=== PATIENT | male | born 1995 | race Caucasian/White ===

== ENCOUNTER → 2019-10-15 20:05 | Outpatient (CLI) | payer OTHER, SELFPAY | LOC: LAB 20:05 | PROVIDERS: PCP Physician Assistant; Visit Provider Physician Assistant | DX: J02.9 Acute pharyngitis, unspecified (principal) | CPT/HCPCS: 87070; 87147 ==

== ENCOUNTER 2020-08-07 19:11 | Emergency (ER) | payer OTHER, SELFPAY ==
[2020-08-07 19:22] VITALS: BP 142/78; PULSE 91; RESP 18; TEMP 36.8; O2SAT 97; BMI 52.7
[2020-08-07] MEDS: AMOXICILLIN 250 MG CAPSULE 500 MG PO (20:00)
--- NOTE | 2020-08-07 20:00 | ED_ITS ---
HPI - URI/Sore Throat <ROZ RaoP - Last Filed: 08/07/20 20:08> General Chief Complaint: Upper Respiratory Symptoms Stated Complaint: thinks strep throat Time Seen by Provider: 08/07/20 19:16 Source: patient Mode of arrival: Ambulatory Limitations: no limitations History of Present Illness HPI Narrative: This is a 25-year-old male, smoker, who presents to ED with frequent history of strep throat infection presents to ED with family member with chief complain of sore throat with white patches for last 2-3 days stating I'm pretty sure I have a strep throat. Patient reports last throat infection was about a year ago. Patient reports throat swelling with white patches in bilateral tonsils and extending to uvula with inflamed soft palate. Reports pain increases with eating and swallowing. Denies difficulty hydrating himself with clear liquid or breathing difficulty. Patient reports runny nose, mild bilateral ear pain but denies cough. Patient denies fever, chills, nausea or vomiting or unusual rashes. Patient reports mild cervical lymph node discomfort. Related Data Previous Rx's Medication Instructions Recorded citalopram 20 mg tablet 20 mg PO DAILY #90 tab 03/09/20 spironolactone 25 mg tablet 25 mg PO DAILY #30 tab 03/09/20 amoxicillin 500 mg PO BID 10 Days #20 cap 08/07/20 Allergies Allergy/AdvReac Type Severity Reaction Status Date / Time lisinopril Allergy Severe Anaphylaxis Verified 03/09/20 11:03 Review of Systems <ROZ RaoP - Last Filed: 08/07/20 20:08> Review of Systems Narrative: General: Denies fever, chills, fatigue, malaise, sweats. HEENT: See HPI Respiratory: Denies dyspnea, cough, wheezing, hemoptysis, sputum. Cardiovascular: Denies chest pain, palpitations, orthopnea, edema. Gastrointestinal: Denies nausea, vomiting, abdominal pain, diarrhea, constipation, melena. : Denies dysuria, frequency, incontinence, hematuria, urinary retention. Musculoskeletal: Denies weakness, joint pain or bony pain. Skin: Denies rash, skin lesions, or other. Neurologic: Denies weakness, headache, numbness, change in speech, confusion, seizures, incoordination. Psychiatric: No concerning psychosocial issues. 12-point review of systems is negative except for those stated above. Patient History <JORGE Rao - Last Filed: 08/07/20 20:08> Medical History ADHD (Chronic ~2017) Depression with anxiety (Acute) Fatigue (Acute) Hypertension (Chronic ~2014) Morbid obesity with BMI of 45.0-49.9, adult (Acute) Sleep apnea (Chronic ~2011) Social anxiety disorder (Acute) Testosterone deficiency (Acute ~2015) Wears glasses (Chronic) Surgical History [place] teeth removed (Resolved) Family History Father Hypertension Hyperlipidemia Brother Autistic disorder Sister Multiple sclerosis Sister Diabetes mellitus Social History Smoking Status: Current every day smoker Smoking Status: Current every day smoker alcohol intake frequency: holidays/special occasions only Substance Use Type: marijuana Exam <JORGE Rao - Last Filed: 08/07/20 20:08> Narrative Exam Narrative: General appearance: well developed, well nourished, in no acute distress. Head: normocephalic, atraumatic, no scalp lesions, non-tender. ENT: Bilateral auditory canals and tympanic membranes clear. Hearing grossly intact. Nose without bleeding, purulent discharge, septal hematoma or deviation. Turbinate without erythema or swelling. Facial sinuses nontender to palpate. Mucous membrane moist, no mucosal lesion. Throat with erythema, tonsillar hypertrophy or white exudate in bilateral tonsils and uvula. Uvula in midline, airway patent. Neck/Thyroid: neck supple, full range of motion, no visible masses or meningeal signs. No JVD. Anterior cervical lymph nodes tender to palpate without lymphadenopathy. Skin: no suspicious rashes, lesions over visible areas. Warm and dry and appropriate color for ethnicity. Heart: no clubbing, no cyanosis, no edema. S1 and S2 normal. RRR w/o murmurs, clicks, or bruits. Lungs: Breathing even and unlabored. No stridor. No accessory muscles used. Able to speak in full sentences. Chest: normal shape and expansion. Abdomen: non-obese, non-distended. Neurologic: alert and oriented. 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 Psych: good eye contact, normal affect. Initial Vital Signs Initial Vital Signs: Vital Signs Temperature 98.3 F 08/07/20 19:22 Pulse Rate 91 H 08/07/20 19:22 Respiratory Rate 18 08/07/20 19:22 Blood Pressure 142/78 H 08/07/20 19:22 Pulse Oximetry 97 08/07/20 19:22 <Jim Martinez DO - Last Filed: 08/08/20 02:37> Initial Vital Signs Initial Vital Signs: Vital Signs Temperature 98.3 F 08/07/20 19:22 Pulse Rate 91 H 08/07/20 19:22 Respiratory Rate 18 08/07/20 19:22 Blood Pressure 142/78 H 08/07/20 19:22 Pulse Oximetry 97 08/07/20 19:22 Scores <JORGE Rao - Last Filed: 08/07/20 20:08> ABCD2 Citation: Lancet. 2006Dec 26;369(8652):283-92. Validation and refinement of scores to predict very early stroke risk after transient ischaemic attack. Kirstin SC1, Yessi PM, Eduardo MN, Curt MF, Scott JS, Nancy AL, Leobardo S. GCS Oliva coma scale eye opening: Spontaneous Oliva coma scale verbal response: Orientated Oliva coma scale motor response: Obey commands [place] coma scale total score: 15 Citation: Centor score 3 Course <JORGE Rao - Last Filed: 08/07/20 20:08> Orders Ordered: ED Orders 08/07/20 19:35 Throat Culture Stat Discontinued Medications Amoxicillin (Trimox) 500 mg PO NOW ONE Stop: 08/07/20 19:53 Last Admin: 08/07/20 20:00 Dose: 500 mg Documented by: [email or web address] Vital Signs Vital signs: Vital Signs - 8 hr 08/07/20 19:22 08/07/20 20:16 Temperature 98.3 F Pulse Rate 91 H 89 Respiratory Rate 18 Blood Pressure 142/78 H 134/80 Pulse Oximetry 97 97 <Jim Martinez DO - Last Filed: 08/08/20 02:37> Orders Ordered: ED Orders 08/07/20 19:35 Throat Culture Stat Discontinued Medications Amoxicillin (Trimox) 500 mg PO NOW ONE Stop: 08/07/20 19:53 Last Admin: 08/07/20 20:00 Dose: 500 mg Documented by: LETY Vital Signs Vital signs: Vital Signs - 8 hr 08/07/20 19:22 08/07/20 20:16 Temperature 98.3 F Pulse Rate 91 H 89 Respiratory Rate 18 Blood Pressure 142/78 H 134/80 Pulse Oximetry 97 97 MDM - URI/Sore Throat <Alin VerdugoJORGE sEpinoza - Last Filed: 08/07/20 20:08> Differential Diagnosis Differential diagnosis: Likely pharyngitis and other (strep, mononucleosis, viral pharyngitis) Medical Records Attestation: I reviewed the patient's medical records. Lab Data Attestation: I reviewed the patient's lab results. Labs: Point of Care Testing Rapid Strep A Negative MDM Narrative Medical decision making narrative: POC test was negative for strep throat. Throat culture obtained and pending. Physical exam is consistent with acute strep like pharyngitis. Will treat patient with amoxicillin b.i.d. course for 10 day course critically for non group a strep throat infection. Patient advised to stop taking amoxicillin if he develops rashes since this may indicating mononucleosis infection. Patient advised not to share utensils, foot, drinks. Advised to discard old toothbrush after the treatment. Return precautions were discussed with patient and patient verbalized understanding and agreement with treatment plan. Work off note provided for 2 days. <Jim Martinez DO - Last Filed: 08/08/20 02:37> Lab Data Labs: Point of Care Testing Rapid Strep A Negative Discharge Plan Departure Patient Disposition: Home Clinical Impression: Acute pharyngitis Qualifiers: Pharyngitis/tonsillitis etiology: other specified organisms Qualified Code(s): J02.8 - Acute pharyngitis due to other specified organisms Discharge Date/Time: 08/07/20 20:27 Instructions: DI for Pharyngitis/Tonsillopharyngitis -- Adult Activity Restrictions/Additional Instructions: You have been diagnosed with [acute pharyngitis. Strep throat POC test was negative but physical exam appears to be non GAStrep throat and will treat you with antibiotic medication empirically.]. What to do: *Take your medications as directed. Take amoxicillin twice a day for next 10 days. First dose was provided here in ED. Medication has been transmitted to [facility] in [place]. *Follow up with your primary care provider in 2-3 days, call for an appointment. Let them know you were seen in the ED and that we asked you to be seen in follow up. *Return to ED if you have any new, worsening, or concerning symptoms, such as [high fever, unable to tolerate fluids, breathing difficulty, chest pain, m uffled voice, worsening pain or any acute concerns]. Prescriptions: New amoxicillin 500 mg capsule 500 mg PO BID 10 Days Qty: 20 RF: 0 No Action citalopram 20 mg tablet 20 mg PO DAILY Qty: 90 RF: 3 spironolactone 25 mg tablet 25 mg PO DAILY Qty: 30 RF: 2 Referrals: Orin Lopes ARNP [Primary Care Provider] - Stand Alone Forms: Work Release Note <Jim Martinez DO - Last Filed: 08/08/20 02:37> Cosign ED Attending Coskimmieature Attestation: I was immediately available in the department for consultation. This documentation has been reviewed and I agree with assessment and plan. Supervised by Jim Martinez DO
[2020-08-07 20:16] VITALS: BP 134/80; PULSE 89; O2SAT 97
== END 2020-08-07 20:27 | disposition home or self-care (01) ==
PROVIDERS: Emergency Provider Nurse Practitioner Family; PCP Nurse Practitioner
DX: J02.8 Acute pharyngitis due to other specified organisms (principal)
CPT/HCPCS: 87070; 87147; 87880; 99283

== ENCOUNTER → 2020-09-13 10:12 | Outpatient (CLI) | payer OTHER, SELFPAY ==
[2020-09-13 11:55] LABS: Creatinine Urine Random 192.7 mg/dL
[2020-09-13 12:03] LABS: Microalbumin Urine Random < 0.6 mg/dL (0-1.6)
[2020-09-13 12:13] LABS: Add Manual Diff / Slide Review NO; Basophils Absolute Auto 100 /uL (0-100); Basophils Percent Auto 0.5 % (0-2); Eosinophils Absolute Auto 200 /uL (0-450); Eosinophils Percent Auto 1.9 % (2-4); Hemoglobin 14.8 g/dL (13.5-17.5); Hemoglobin A1C% w Est Avg Glu 5.2 % (4.0-6.0); Lymphocytes Absolute Auto 3200 /uL (1100-4500); Lymphocytes Percent Auto 27.8 % (25-40); Mean Corpuscular HGB Conc 32.9 % (30-36); Mean Corpuscular Hemoglobin 27.9 PG (26-34); Mean Corpuscular Volume 84.8 fL (80-100); Monocytes Absolute Auto 600 /uL (0-900); Neutrophils Absolute Auto 7500 /uL (1500-7000); Neutrophils Percent Auto 64.8 % (50-75); Platelet Count 289 X10^3/uL (150-400); Red Blood Cell Count 5.31 X10^6/uL (4.5-5.9); Red Cell Distribution Width 13.9 % (11.6-14.8); White Blood Cell Count 11.6 X10^3/uL (4.5-11.0)
[2020-09-13 13:14] LABS: Alanine Aminotransferase 51 IU/L (<50); Albumin 4.7 g/dL (3.5-5.0); Albumin Globulin Ratio 1.5 (1.0-2.8); Alkaline Phosphatase 60 U/L (38-126); Aspartate Aminotransferase 30 IU/L (17-59); BUN Creatinine Ratio 21.9 (6-22); Bilirubin Total 0.4 mg/dL (0.2-1.3); Blood Urea Nitrogen 14 mg/dL (9-20); Calcium 9.9 mg/dL (8.4-10.2); Carbon Dioxide 29 mmol/L (22-32); Chloride 99 mmol/L (98-107); Cholesterol 212 mg/dL (140-199); Estimated Glomerular Filt Rate > 60.0 mL/min (>60); Globulin 3.1 g/dL (1.7-4.1); Glucose 75 mg/dL (70-100); HDL Cholesterol 42 mg/dL (40-60); HEMOLYSIS < 15 (0-50); LDL Cholesterol Calculated 106 mg/dL (<100); Potassium 4.4 mmol/L (3.4-5.1); Sodium 136 mmol/L (137-145); Total Protein 7.8 g/dL (6.3-8.2); Triglycerides 321 mg/dL (35-150)
[2020-09-13 13:23] LABS: Free T3, Triiodothyronine Free 3.02 pg/mL (2.77-5.27); Free T4, Direct Thyroxine 0.79 ng/dL (0.78-2.19)
[2020-09-13 13:36] LABS: Thyroid Stimulating Hormone 1.84 uIU/mL (0.47-4.68)
[2020-09-13 13:41] LABS: Testosterone 151 ng/dL (132-813)
== END ==
PROVIDERS: Family Medicine; PCP Nurse Practitioner; Referring Provider Nurse Practitioner; Visit Provider Nurse Practitioner
DX: Z00.00 Encounter for general adult medical examination without abnormal findings (principal); I10 Essential (primary) hypertension; E66.01 Morbid (severe) obesity due to excess calories; Z68.42 Body mass index [BMI] 45.0-49.9, adult; E66.9 Obesity, unspecified; F32.9 Major depressive disorder, single episode, unspecified; F41.9 Anxiety disorder, unspecified; N52.9 Male erectile dysfunction, unspecified; R53.83 Other fatigue; R79.89 Other specified abnormal findings of blood chemistry
CPT/HCPCS: 36415; 80053; 80061; 82043; 82570; 83036; 84403; 84439; 84443; 84481; 85025

== ENCOUNTER → 2021-10-19 11:38 | Outpatient (CLI) | payer OTHER, MEDICAID, SELFPAY ==
[2021-10-19 12:11] LABS: Add Manual Diff / Slide Review NO; Basophils Absolute Auto 0 /uL (0-100); Basophils Percent Auto 0.4 % (0-2); Eosinophils Absolute Auto 100 /uL (0-450); Eosinophils Percent Auto 1.4 % (2-4); Hematocrit 44.9 % (41-53); Hemoglobin 15.1 g/dL (13.5-17.5); Lymphocytes Absolute Auto 2600 /uL (1100-4500); Lymphocytes Percent Auto 26.7 % (25-40); Mean Corpuscular HGB Conc 33.6 % (30-36); Mean Corpuscular Hemoglobin 28.4 PG (26-34); Mean Corpuscular Volume 84.3 fL (80-100); Monocytes Absolute Auto 600 /uL (0-900); Neutrophils Absolute Auto 6300 /uL (1500-7000); Neutrophils Percent Auto 65.5 % (50-75); Platelet Count 310 X10^3/uL (150-400); Red Blood Cell Count 5.32 X10^6/uL (4.5-5.9); Red Cell Distribution Width 14.2 % (11.6-14.8); White Blood Cell Count 9.7 X10^3/uL (4.5-11.0)
[2021-10-19 12:39] LABS: Alanine Aminotransferase 76 IU/L (<50); Albumin 4.8 g/dL (3.5-5.0); Albumin Globulin Ratio 1.3 (1.0-2.8); Alkaline Phosphatase 60 U/L (38-126); Aspartate Aminotransferase 43 IU/L (17-59); BUN Creatinine Ratio 24.2 (6-22); Bilirubin Total 0.8 mg/dL (0.2-1.3); Blood Urea Nitrogen 15 mg/dL (9-20); Calcium 9.9 mg/dL (8.4-10.2); Carbon Dioxide 27 mmol/L (22-32); Chloride 101 mmol/L (98-107); Estimated Glomerular Filt Rate > 60.0 mL/min (>60); Globulin 3.6 g/dL (1.7-4.1); Glucose 89 mg/dL (70-100); HEMOLYSIS < 15 (0-50); Potassium 4.2 mmol/L (3.4-5.1); Sodium 138 mmol/L (137-145); Total Protein 8.4 g/dL (6.3-8.2)
[2021-10-19 12:51] LABS: Free T3, Triiodothyronine Free 3.52 pg/mL (2.77-5.27); Free T4, Direct Thyroxine 0.79 ng/dL (0.78-2.19)
[2021-10-19 13:05] LABS: Thyroid Stimulating Hormone 0.795 uIU/mL (0.47-4.68)
[2021-10-25 10:36] LABS: Percent Free Testosterone 3.33 % (1.50-4.20); Testosterone Free 5.63 ng/dL (5.00-21.00)
== END ==
PROVIDERS: PCP Nurse Practitioner; Referring Provider Nurse Practitioner; Visit Provider Nurse Practitioner
DX: E78.2 Mixed hyperlipidemia (principal); F40.10 Social phobia, unspecified; F41.8 Other specified anxiety disorders; R53.83 Other fatigue; Z00.00 Encounter for general adult medical examination without abnormal findings; Z86.39 Personal history of other endocrine, nutritional and metabolic disease
CPT/HCPCS: 36415; 80053; 84402; 84403; 84439; 84443; 84481; 85025